=== PATIENT | male | born 1975 | race Caucasian/White ===

== ENCOUNTER 2017-01-21 16:55 | Inpatient (IN) | payer OTHER ==
--- NOTE | 2017-01-21 18:54 | Emergency Department Report ---
Entered by ANABELLA CEVALLOS, acting as scribe for CARL KELLOGG PA. Chief Complaint: Abdominal Pain Stated Complaint: ABDOMINAL PAIN Time Seen by Provider: 01/21/17 18:34 - HPI History of Present Illness: 41 year old male presents to the ED c/o abd pain for 2 days. Patient reports headache and lower abd pain, but denies n/v, fever, chills, dysuria, and diarrhea. Patient does not speak Setswana. - ROS Review of Systems: reports headache and lower abd pain, denies n/v, fever, chills, dysuria, and diarrhea - Exam Vital Signs: Vital Signs 01/21/17 17:06 Temperature 98 F Pulse Rate 115 H Respiratory 20 Rate Blood Pressure 133/89 O2 Sat by Pulse 97 Oximetry Physical Exam: GENERAL: Patient is alert and oriented x 3. No apparent distress, normal gait, atraumatic. HEAD: Head is normocephalic and atraumatic. Abdomen: Soft, nontender, and nondistended. Positive bowel sounds. No hepatosplenomegaly was noted. Guarding and mild tenderness to palpation present of The lower quadrant MSE screening note: Focused history and physical exam performed. Due to findings the following was ordered: CBC, comprehensive metabolic, lipase, and UA was ordered for patient. ED Medical Decision Making - Medical Decision Making Abdominal pain protocol ordered. CT abdomen and pelvis ordered. Patient to be seen by the physician. ED Disposition for MSE Condition: Stable This documentation as recorded by the scribe,ANABELLA CEVALLOS,accurately reflects the service I personally performed and the decisions made by BESS hui OYINLOLA A, PA.
[2017-01-21 19:34] LABS: Basophils % (Auto) 0.3 % (0.0-1.8); Hematocrit 42.4 % (35.5-45.6); Mean Corpuscular HGB Conc 33 % (32-34); Mean Corpuscular Hemoglobin 29 pg (28-32); Mean Corpuscular Volume 87 fl (84-94); Platelet Count 307 K/mm3 (140-440); Red Blood Count 4.91 M/mm3 (3.65-5.03); Red Cell Distribution Width 13.8 % (13.2-15.2); White Blood Count 17.4 K/mm3 (4.5-11.0)
[2017-01-21 19:39] LABS: Bilirubin,Urine NEG (Negative); Blood,Urine NEG (Negative); Ketones,Urine NEG (Negative); Leukocyte Esterase,Urine NEG (Negative); Mucus,Urine FEW /HPF; Nitrite,Urine NEG (Negative); Protein,Urine <15 mg/dL mg/dL (Negative); Urobilinogen,Urine < 2.0 mg/dL (<2.0)
[2017-01-21 19:49] LABS: Alanine Aminotransferase 46 units/L (7-56); Albumin 4.5 g/dL (3.9-5); Albumin/Globulin Ratio 1.1 %; Alkaline Phosphatase 69 units/L (35-129); Anion Gap 21 mmol/L; Blood Urea Nitrogen 12 mg/dL (9-20); Calcium 9.3 mg/dL (8.4-10.2); Carbon Dioxide 25 mmol/L (22-30); Chloride 92.6 mmol/L (98-107); Glucose 146 mg/dL (75-100); Lipase 22 units/L (13-60); Potassium 4.5 mmol/L (3.6-5.0); Sodium 134 mmol/L (137-145); Total Protein 8.6 g/dL (6.3-8.2)
--- NOTE | 2017-01-21 19:50 | Cat Scan Report ---
FINAL REPORT EXAM: CT ABDOMEN PELVIS WO CON HISTORY: abd pain/ gen/lower quad TECHNIQUE: Serial axial images through the abdomen and pelvis with coronal and sagittal reconstruction. PRIORS: None. FINDINGS: There is mild atelectasis in the lung bases. No pleural effusion is seen. Calcified granuloma is noted in the right lung base. The liver, gallbladder, pancreas, spleen and adrenal glands appear within normal limits. Kidneys appear normal. Aorta is normal in caliber. Bladder appears normal. Multiple appendicoliths are seen in the appendix. The appendix measures up to 14.7 millimeters in diameter. Inflammatory changes are seen adjacent to the appendix. Degenerative changes are seen in the spine. IMPRESSION: 1. Findings are consistent with acute appendicitis.
[2017-01-21] MEDS ORDERED: MERREM 1,000 MG in NACL 0.9% 100 ML IV ONE (20:23)
[2017-01-21] MEDS ORDERED: NACL 0.9% 1000 ML 1,000 ML IV ONE (20:23)
[2017-01-21] MEDS ORDERED: MORPHINE IV ONE (20:23)
[2017-01-21] MEDS ORDERED: ZOFRAN IV ONE (20:23)
--- NOTE | 2017-01-21 20:37 | Emergency Department Report ---
ED Abdominal Pain HPI - General Chief Complaint: Abdominal Pain Stated Complaint: ABDOMINAL PAIN Time Seen by Provider: 01/21/17 18:29 Source: patient Mode of arrival: Ambulatory Limitations: No Limitations - History of Present Illness MD Complaint: abdominal pain -: Gradual Location: RLQ Radiation: none Migration to: periumbilical Quality: fullness, dull Consistency: constant Improves With: nothing Worsens With: nothing Associated Symptoms: denies: nausea, vomiting, diarrhea, fever, constipation, dysuria, hematemesis - Related Data Allergies Allergy/AdvReac Type Severity Reaction Status Date / Time No Known Allergies Allergy Verified 01/21/17 20:24 ED Review of Systems ROS: Stated complaint: ABDOMINAL PAIN Other details as noted in HPI Comment: All other systems reviewed and negative ED Past Medical Hx - Past Medical History Previous Medical History?: Yes Hx Asthma: Yes - Surgical History Past Surgical History?: No - Social History Smoking Status: Never Smoker Substance Use Type: Other ED Physical Exam - General Limitations: No Limitations General appearance: alert, in no apparent distress - Head Head exam: Present: atraumatic, normocephalic - Eye Eye exam: Present: normal appearance - ENT ENT exam: Present: mucous membranes moist - Neck Neck exam: Present: normal inspection - Respiratory Respiratory exam: Present: normal lung sounds bilaterally. Absent: respiratory distress - Cardiovascular Cardiovascular Exam: Present: regular rate, normal rhythm. Absent: systolic murmur, diastolic murmur, rubs, gallop - GI/Abdominal GI/Abdominal exam: Present: soft, tenderness, normal bowel sounds. Absent: distended, guarding, rebound, rigid, organomegaly, mass, bruit, pulsatile mass, hernia - Rectal Rectal exam: Present: deferred - Extremities Exam Extremities exam: Present: normal inspection - Back Exam Back exam: Present: normal inspection - Neurological Exam Neurological exam: Present: alert, oriented X3 - Psychiatric Psychiatric exam: Present: normal affect, normal mood - Skin Skin exam: Present: warm, dry, intact, normal color. Absent: rash ED Course Vital Signs 01/21/17 17:06 Temperature 98 F Pulse Rate 115 H Respiratory 20 Rate Blood Pressure 133/89 O2 Sat by Pulse 97 Oximetry ED Medical Decision Making - Lab Data Result diagrams: 01/21/17 18:57 01/21/17 18:57 - EKG Data When compared to previous EKG there are: no significant change - Radiology Data Radiology results: report reviewed, image reviewed - Medical Decision Making patient with findings consistent with mairay, called and talked to surgery at 2004 and he will do surgery tomorrow am , abx and fluids given here.will admit Critical care attestation.: If time is entered above; I have spent that time in minutes in the direct care of this critically ill patient, excluding procedure time. ED Disposition Clinical Impression: Appendicitis Disposition: 09 OP ADMIT IP TO THIS HOSP Is pt being admited?: Yes Does the pt Need Aspirin: No Condition: Fair Time of Disposition: 20:37
[2017-01-21] MEDS ORDERED: D5W/0.45% NACL/KCL 20 MEQ 20 MEQ/1,000 ML BAG IV SCH (21:00)
[2017-01-22] MEDS ORDERED: MERREM/NS 500 MG/50 ML 500 MG/50 ML BAG IV SCH (06:00)
[2017-01-22] MEDS: MERREM/NS 500 MG/50 ML 500 MG/50 ML BAG IV SCH ×3 (06:26→18:12)
--- NOTE | 2017-01-22 08:40 | Admit Criteria Form ---
Admission Criteria Documentation: ABDOMINAL PAIN Clinical Indications for Admission to Inpatient Care (Place 'X' for any and all applicable criteria): Admission is indicated for ANY ONE of the following(1)(2)(3)(4)(5): [X ]I. Inpatient admission required rather than observation care (Also use Abdominal Pain: Observation Care, as appropriate) because of ANY ONE of the following: [ ]a) Severe pain requiring acute inpatient management [X ]b) Identification of etiology/finding that requires inpatient care (eg, aortic dissection, free air) [ ]c) Absent bowel sounds with complete ileus(6) [ ]d) Suspected toxic megacolon [ ]e) Severe electrolyte abnormalities requiring inpatient care [ ]f) High fever or infection requiring inpatient admission as indicated by ANY ONE of following(7)(8): [ ] i) Appropriate outpatient or observational care antimicrobial treatment unavailable, not effective, or not feasible [ ] ii) Documented bacteremia [ ] iii) Temperature > 104.9 degrees F (oral) [ ] iv) T >103.1 F (oral) or < 96.8 F(rectal) that does not respond to all emergency treatment measures [ ]g) Signs of intestinal obstruction [B] [ ]h) Hemodynamic instability [ ]i) IV fluid to replace significant ongoing losses (greater than 3 L/m2 per day) (12)(13) [ ]j) Percutaneous or open drainage (eg, abscess, biliary tract ) procedures [ ]k) Parenteral nutrition regimen that must be implemented on inpatient basis [ ]l) Other condition,treatment or monitoring requiring inpatient admission. [ ]II. Peritoneal signs present [ ]III. Surgery needed that cannot be performed on an ambulatory basis. [ ]IV. Evaluation requires patient to not eat or drink for extended period ( eg, more than 24 hours). [ ]V. Contraindications and/or Inappropriate clinical situations for Observational Care in patients with abdominal pain, when ANY ONE of the following is required: [ ]a) Thorough evaluation is required to prevent catastrophic events due to delays in diagnosing (e.g.Mesenteric ischemia) 1,3 [ ]b) Patient with severe pathology or with chronic symptoms unlikely to improve in the ED stay (3) [ ]. General contraindications and/or Inappropriate clinical situations for Observational Care in patients with abdominal pain, when ANY ONE of the following is required: [ ]a) Prediction of prolongation of LOS based on ANY ONE of the following may be considered as a contraindication for observational care 2, 3, 4, 5, 6, 7, 8, 9, 10, 11 [ ]i) Age > 65 yrs. [ ]ii) Patient arriving by ambulance [ ]iii) Patient with high acuity [ ]iv) Patient requiring vital sign monitoring [ ]v) Patient on IV medication [ ]b) Systolic blood pressures 180mmHg 3,12 [ ]c) Patient with altered mental status including delirium and other alteration of consciousness, (3) [ ]d) Patient whose discharge disposition will be to a senior care home or rehabilitation home should not be managed in Emergency Department Observation Unit. CMS rule requires 3 days hospital stay before such placement.3,13 [ ]e) Patient with failure to thrive due to broad array of etiologies 3,16,17 [ ]f) Inability to ambulate 3,14 Extended stay beyond goal length of stay may be needed for(2)(3): [ ]a) Persistent abdominal pain with suspected intra-abdominal process [ ]b) Diagnosed condition requiring continued stay (e.g., pancreatitis, complicated diverticulitis) [ ]c) Surgery (e.g., colectomy) The original [facility] content created by [email or web address] has been revised. The portions of the content which have been revised are identified through the use of italic text or in bold, and [facility] has neither reviewed nor approved the modified material.All other unmodified content is copyright [facility]. Please see references footnoted in the original [facility] edition 2016 Admission Criteria Met: Yes
[2017-01-22] MEDS: MORPHINE IV PRN ×3 (08:53→22:37)
--- NOTE | 2017-01-22 11:38 | Anesthesia Consultation ---
Anesthesia Consult and Med Hx Date of service: 01/22/17 - Airway Anesthetic Teeth Evaluation: Chipped ROM Head & Neck: Adequate Mental/Hyoid Distance: Adequate Mallampati Class: Class II Intubation Access Assessment: Probably Good - Pulmonary Exam CTA: Yes - Cardiac Exam Cardiac Exam: RRR - Pre-Operative Health Status ASA Pre-Surgery Classification: ASA2 Proposed Anesthetic Plan: General - Pulmonary Hx Asthma: Yes (patient denies, says he has lung pain and hasnt been checked out ) Hx Respiratory Symptoms: Yes (lung pain) Hx Sleep Apnea: No (snores) - Central Nervous System Hx Back Pain: Yes (left leg pain radiating from spine) - Other Systems Hx Cancer: No - Additional Comments Anesthesia Medical History Comments: does not speak slovenian, used phone interp.
--- NOTE | 2017-01-22 11:39 | Anesthesia Day of Surgery ---
Anesthesia Day of Surgery - Day of Surgery Patient Examined: Yes Patient H&P Reviewed: Yes Patient is NPO: Yes
[2017-01-22] MEDS ORDERED: ROBINUL ONE ×2 (11:43)
[2017-01-22] MEDS ORDERED: ZEMURON IV ONE (11:43)
[2017-01-22] MEDS ORDERED: NEOSTIGMINE ONE (11:43)
[2017-01-22] MEDS ORDERED: DECADRON ONE (11:43)
[2017-01-22] MEDS ORDERED: XYLOCAINE MPF 2% ONE (11:43)
[2017-01-22] MEDS ORDERED: ZOFRAN ONE (11:43)
[2017-01-22] MEDS ORDERED: SUBLIMAZE ONE (11:44)
[2017-01-22] MEDS ORDERED: DIPRIVAN 10 MG/ML IV ONE ×2 (11:44→13:10)
[2017-01-22] MEDS ORDERED: VERSED IV NR (12:00)
[2017-01-22] MEDS ORDERED: DILAUDID IV PRN (12:00)
[2017-01-22] MEDS ORDERED: PEPCID IV NR (12:00)
[2017-01-22] MEDS ORDERED: NACL 0.9% 1000 ML 1,000 ML IV SCH (12:00)
[2017-01-22] MEDS ORDERED: NACL 0.9% 1000 ML 1,000 ML ONE ×3 (12:02→14:38)
[2017-01-22] MEDS ORDERED: PROAIR IH ONE (12:26)
[2017-01-22] MEDS ORDERED: MARCAINE 0.5% 30 ML INFILTRATI ONE (12:47)
[2017-01-22] MEDS ORDERED: NACL 0.9% IR ONE (12:50)
[2017-01-22] MEDS ORDERED: MARCAINE 0.5% INFILTRATI ONE (12:50)
--- NOTE | 2017-01-22 14:00 | Post Operative Note ---
Pre-op diagnosis: acute appedicitis Post-op diagnosis: same Findings: retrocecal and long ganrenous, oen appendectomy left a drain there Bard #[id number] Anesthesia: GETA Surgeon: KERA MARIE Estimated blood loss: minimal Pathology: list (appy and peritoneal implant?) Specimen disposition: to lab
--- NOTE | 2017-01-22 14:26 | Post Anesthesia Evaluation ---
- Post Anesthesia Evaluation Patient Participated: Yes Airway Patent: Yes Stable Respiratory Function: Yes Nausea/Vomiting: No Temp > 96.8F: Yes Pain Manageable: Yes Adequeate Hydration: Yes Anesthesia Complications: No
[2017-01-22] MEDS ORDERED: DILAUDID ONE (14:37)
[2017-01-22] MEDS ORDERED: PROVENTIL IH ONE (15:08)
[2017-01-22] MEDS: PROVENTIL IH SCH ×2 (20:07→20:23)
[2017-01-22] MEDS ORDERED: PROVENTIL IH PRN (20:20)
[2017-01-22] MEDS: D5W/0.45% NACL/KCL 20 MEQ 20 MEQ/1,000 ML BAG IV SCH (22:41)
[2017-01-22] MEDS ORDERED: AMBIEN PO PRN (22:53)
[2017-01-23] MEDS: MERREM/NS 500 MG/50 ML 500 MG/50 ML BAG IV SCH ×3 (00:18→12:49)
[2017-01-23] MEDS: MORPHINE IV PRN ×2 (04:47→10:24)
[2017-01-23] MEDS: D5W/0.45% NACL/KCL 20 MEQ 20 MEQ/1,000 ML BAG IV SCH (05:57)
--- NOTE | 2017-01-23 10:30 | Progress Note ---
Subjective Patient Reports: Positive: feels better, still having pain, flatus, no bowel movement Narrative: doing fine wound ok drain out home today on cipro 1 po bid , bto in 10 days . no driving. Objective Vital Signs - 12hr 01/23/17 01/23/17 01/23/17 01:15 05:53 08:00 Temperature 98.7 F 99.1 F 98.8 F Pulse Rate [ 96 H 87 75 Left Radial] Pulse Rate [ 96 H 87 75 Right Radial] Respiratory 20 20 18 Rate Blood Pressure 121/70 111/67 112/70 [Left Arm] O2 Sat by Pulse 99 98 98 Oximetry - Labs 01/21/17 18:57 01/21/17 18:57
[2017-01-23] MEDS ORDERED: FLEET PR ONE (12:00)
[2017-01-23 17:05] VITALS: BP 113/71
--- NOTE | 2017-01-31 15:43 | Operative Report ---
Right lower quadrant pain with evidence of appendicitis, retrocecal and long seen on the CT scan. PREOPERATIVE DIAGNOSIS: Acute appendicitis. POSTOPERATIVE DIAGNOSIS: Acute appendicitis, retrocecal, very long. SURGERY: Appendectomy via an open technique. ANESTHESIA: _General____. BLOOD LOSS: Minimal. FINDINGS: The patient had a very long appendix measuring at least 15-16 cm, located in the retrocecal aspect, and evidence of some gangrenous changes at its tip. DESCRIPTION OF PROCEDURE: With the patient in supine position, after prepped and draped in usual fashion, I made an incision in the right lower quadrant deep subcutaneous tissue all the way down to fascia, which was incised along its fibers all the way into the abdominal cavity. At that point, I was able to locate the cecum and at its tip I could see the base of the appendix, which was very long, as I mentioned above, which goes all the way to the retrocecal aspect. So slowly I had to extend my incision and I was able to exteriorize the cecum, at which point the appendix was suture ligated at its base and the same for the mesoappendix and then slowly I was able to dissect it from its location that went all the way up superiorly. Once I had good hemostasis we were very much satisfied. Then the wound was closed in layers with 0 Vicryl for the deep fascia and 0 for the superficial fascia and keshia for the skin. The patient was then transferred to the recovery room in good condition. JOB# [id number] THEA/ALEJANDRINA JEFFRIES
== END 2017-01-23 19:10 | disposition home or self-care (01) | DRG 343 ==
LOC: ED 16:55 → 2B-SURG 20:30
PROVIDERS: ADMIT Surgery; ATTEND Surgery
PROC: 0DTJ0ZZ Resection of Appendix, Open Approach (ICD-10-PCS; principal; 2017-01-22)
DX: K37 Unspecified appendicitis (principal); J45.909 Unspecified asthma, uncomplicated
CPT/HCPCS: 36415; 74176; 80053; 81001; 82962; 83690; 85025; 88304; 88305; 94640; 96374; 96375; 99285; J1100; J1170; J2185; J2250; J2270; J2405; J2704; J2710; J3010; J7030